=== PATIENT | female | born 1995 | race Hispanic/Latino ===

== ENCOUNTER 2025-09-28 10:10 | Inpatient (IN) | payer SELFPAY ==
[2025-10-01 07:26] VITALS: BMI 36.0
[2025-10-01] MEDS ORDERED: Bupivacaine 0.25% HCL 30 ML VIAL ONE (08:00)
[2025-10-01] MEDS ORDERED: Lidocaine 1% (PF) 30 ML VIAL SC PRN (08:37)
[2025-10-01] MEDS ORDERED: Ondansetron PF 4 MG/2 ML Vial IVP PRN ×3 (08:37→20:36)
[2025-10-01] MEDS ORDERED: Acetaminophen 500 MG TAB PO PRN (08:37)
[2025-10-01] MEDS ORDERED: HYDROcodone/Acetaminophen 5/325 mg Tablet PO PRN ×3 (08:37→20:36)
[2025-10-01] MEDS ORDERED: Diphenoxylate HCl/Atropine Tablet PO PRN (08:37)
[2025-10-01] MEDS ORDERED: hydrALAZINE 20 MG/ML VIAL SLOW IVP PRN ×2 (08:37→20:36)
[2025-10-01] MEDS ORDERED: Methylergonovine 0.2 MG/ML VIAL IM PRN (08:37)
[2025-10-01] MEDS ORDERED: Carboprost 250 MCG/ML AMP IM PRN (08:37)
[2025-10-01] MEDS ORDERED: Oxytocin 30 units/NS 500 ML 500 ML IV SCH ×2 (08:45)
[2025-10-01 09:11] LABS: Hematocrit 33.7 % (34.9-44.5); Hemoglobin 11.2 g/dL (12.0-15.5); Mean Corpuscular Hemoglobin 27.8 pg (27.0-33.0); Mean Corpuscular Volume 83.6 fL (81.6-98.3); Platelet Count 273 10x3/uL (150-450); Red Blood Cell (RBC) Count 4.03 10x6/uL (3.90-5.03); White Blood Cell (WBC) Count 10.53 10x3/uL (3.5-10.5)
[2025-10-01 09:40] LABS: Syphilis Antibody Index 0.07 S/CO (<1.00 Non-Reactive)
[2025-10-01 09:42] LABS: Hep B Surf Ag - L&D Non-Reactive S/CO (NonReactive)
[2025-10-01] MEDS ORDERED: Acetaminophen 325 MG TAB PO PRN (13:37)
[2025-10-01] MEDS ORDERED: diphenhydrAMINE 50 MG/ML VIAL IVP PRN (13:37)
[2025-10-01] MEDS ORDERED: Communication Order-Pharmacy FS SCH (13:45)
[2025-10-01] MEDS ORDERED: fentaNYL 2 mcg/Ropivacaine 0.2% Epidural 100 ML CADD EPIDURAL SCH (13:45)
[2025-10-01] MEDS: fentaNYL/Ropivacaine Epidural 100 ML ONE (13:48)
[2025-10-01] MEDS: Ibuprofen 800 MG TAB PO PRN (19:21)
[2025-10-01] MEDS ORDERED: Preparation H Ointment 28 GM TUBE PR PRN (20:36)
[2025-10-01] MEDS ORDERED: Lanolin Ointment 7 GM TUBE TOP PRN (20:36)
[2025-10-01] MEDS ORDERED: Milk Of Magnesia 30 ML UDCUP PO PRN (20:36)
[2025-10-01] MEDS ORDERED: diphenhydrAMINE 25 MG CAP PO PRN (20:36)
[2025-10-01] MEDS ORDERED: Bisacodyl 10 MG SUPP PR PRN (20:36)
[2025-10-01] MEDS: Benzocaine-Menthol 82.5 ML CAN TOP PRN (21:25)
[2025-10-02] MEDS: Ibuprofen 800 MG TAB PO SCH (04:42)
[2025-10-02] MEDS: Ferrous Sulfate 325 MG TAB PO SCH (07:54)
[2025-10-02 20:01] VITALS: BP 125/70; TEMP 98
== END 2025-10-02 20:05 | disposition home or self-care (01) | DRG 807 ==
LOC: CSHLD 10-01 06:30 → CSHPED 10-01 19:53
PROVIDERS: ADMIT Student in an Organized Health Care Education/Training Program; ATTEND Student in an Organized Health Care Education/Training Program
PROC: 10E0XZZ Delivery of Products of Conception, External Approach (ICD-10-PCS; principal; 2025-10-01)
PROC: 0KQM0ZZ Repair Perineum Muscle, Open Approach (ICD-10-PCS; 2025-10-01)
PROC: 4A1HXCZ Monitoring of Products of Conception, Cardiac Rate, External Approach (ICD-10-PCS; 2025-10-01)
DX: O70.1 Second degree perineal laceration during delivery (principal); Z37.0 Single live birth; Z3A.40 40 weeks gestation of pregnancy; O69.81X0 Labor and delivery complicated by cord around neck, without compression, not applicable or unspecified
CPT/HCPCS: 36415; 51702; 85027; 86780; 86850; 86900; 86901; 87340; J7120